=== PATIENT | female | born 1975 | race Caucasian/White ===

== ENCOUNTER → 2016-09-26 | Outpatient (CLI) | payer BC ==
[~2016-09-26] MED LIST: ACET325T14 PO; CALC-55 PO; CALC200T3 PO; CEFA1VIA2 IV; CHOL2000 PO; DOCU-30 PO; ERTA1VIA IV; ESTR1PAT40 TP; HYDR-3240 PO; HYDR-3307 PO; LORA0.5T PO; METR500T PO; ONDA4TAB10 PO; OXYC-229 PO; OXYC-302 PO; OXYC5TAB3 PO; PANT40TA3 PO; PROC5TAB40 PO; SCOP1PAT TD; SENN-1 PO; SENN1TAB7 PO; bi-est SUBMUC
== END | disposition home or self-care (01) ==
LOC: RAD 12:37
PROVIDERS: ATTEND Registered Nurse Registered Nurse First Assistant
DX: M41.85 Other forms of scoliosis, thoracolumbar region (principal); M43.8X9 Other specified deforming dorsopathies, site unspecified
CPT/HCPCS: 72082

== ENCOUNTER → 2016-12-08 | Outpatient (CLI) | payer BC ==
[~2016-12-08] MED LIST changes: +DOCU-131 PO; -DOCU-30 PO; -OXYC-229 PO; +OXYC-307 PO
== END | disposition home or self-care (01) ==
LOC: ROC 10:11
PROVIDERS: ATTEND Radiology Radiation Oncology
DX: C53.0 Malignant neoplasm of endocervix (principal)
CPT/HCPCS: 99212; G0463

== ENCOUNTER → 2016-12-29 | Outpatient (CLI) | payer BC ==
[~2016-12-29] MED LIST changes: +OMNIPAQUE 350 MG/ML, 100ML BOTTLE ONE
== END | disposition home or self-care (01) ==
LOC: CFH 09:35
PROVIDERS: ATTEND Radiology Radiation Oncology
DX: C53.0 Malignant neoplasm of endocervix (principal); K92.89 Other specified diseases of the digestive system; M43.17 Spondylolisthesis, lumbosacral region
CPT/HCPCS: 71260; 74177; Q9967

== ENCOUNTER → 2017-06-15 | Outpatient (CLI) | payer BC ==
[~2017-06-15] MED LIST changes: -OMNIPAQUE 350 MG/ML, 100ML BOTTLE ONE; -SCOP1PAT TD; +SCOP1PAT11 TD
== END ==
LOC: ROC 13:23
PROVIDERS: ATTEND Radiology Radiation Oncology
DX: Z08 Encounter for follow-up examination after completed treatment for malignant neoplasm (principal); C53.0 Malignant neoplasm of endocervix
CPT/HCPCS: 99212; G0463

== ENCOUNTER → 2017-10-18 | Outpatient (CLI) | payer BC ==
[~2017-10-18] MED LIST changes: +OMNIPAQUE 350 MG/ML, 100ML BOTTLE ONE; -SENN-1 PO; +SENN-92 PO
== END | disposition home or self-care (01) ==
LOC: CFH 11:15
PROVIDERS: ATTEND Internal Medicine Hematology & Oncology
DX: Z12.31 Encounter for screening mammogram for malignant neoplasm of breast (principal); C7A.1 Malignant poorly differentiated neuroendocrine tumors; C53.9 Malignant neoplasm of cervix uteri, unspecified; D70.1 Agranulocytosis secondary to cancer chemotherapy; C56.9 Malignant neoplasm of unspecified ovary; R16.1 Splenomegaly, not elsewhere classified
CPT/HCPCS: 71260; 74177; 77063; 77067; Q9967

== ENCOUNTER 2017-10-24 15:54 | Inpatient (IN) | payer BC ==
[~2017-10-24] VITALS: Ht 167.6 cm; Wt 75.8 kg
[~2017-10-24 15:54] MED LIST changes: -OMNIPAQUE 350 MG/ML, 100ML BOTTLE ONE
[2017-10-24 16:27] LABS: BASOPHILS # (AUTO) 0.02 x10^3/uL (0-0.1); BASOPHILS % (AUTO) 0 % (0-1); EOSINOPHILS # (AUTO) 0.29 x10^3/uL (0-0.4); EOSINOPHILS % (AUTO) 5 % (1-7); LYMPHOCYTES # (AUTO) 0.53 x10^3/uL (1-3.4); LYMPHOCYTES % (AUTO) 9 % (22-44); MD NO; MEAN CORPUSCULAR HEMOGLOBIN 28.2 pg (27.0-34.8); MEAN CORPUSCULAR HGB CONC 33.6 g/dL (32.4-35.8); MEAN CORPUSCULAR VOLUME 83.9 fL (80-100); MONOCYTES # (AUTO) 0.41 x10^3/uL (0.2-0.8); MONOCYTES % (AUTO) 7 % (2-9); NEUTROPHILS # (AUTO) 4.49 x10^3/uL (1.8-6.8); NEUTROPHILS % (AUTO) 78 % (42-75); PLATELET COUNT 282 x10^3/uL (130-400); RED BLOOD COUNT 4.22 x10^6/uL (3.82-5.3); RED CELL DISTRIBUTION WIDTH 12.9 % (9.6-15.2)
[2017-10-24] MEDS ORDERED: SODIUM CHLORIDE FLUSH 10ML SYR IVF ONE ×2 (16:30→21:30)
[2017-10-24 16:34] LABS: ALBUMIN 3.3 g/dL (3.4-5.0); ANION GAP 7 mmol/L (5-15); CHLORIDE 101 mmol/L (98-107); CREATININE 1.11 mg/dL (0.55-1.02)
[2017-10-24 19:54] LABS: MICROSCOPIC NOT IND
[2017-10-24 20:05] LABS: CULTURE INDICATED? NO
[2017-10-24] MEDS ORDERED: OMNIPAQUE 350 MG/ML, 100ML BOTTLE ONE (21:21)
[2017-10-24] MEDS ORDERED: SODIUM CHLORIDE 0.9% 1,000ML IVBOLUS ONE (21:30)
[2017-10-24] MEDS ORDERED: TESTOSTERONE CREAM TD (21:47)
[2017-10-24] MEDS ORDERED: DIPH25CA61 PO (21:47)
[2017-10-24] MEDS ORDERED: CYCL-259 PO (21:47)
[2017-10-24] MEDS ORDERED: OXYC-307 PO (21:47)
[2017-10-24 23:21] VITALS: BP 146/66
[2017-10-24] MEDS ORDERED: ONDANSETRON 2MG/ML, 2ML IVPush PRN (23:30)
[2017-10-25] MEDS: NS + 20MEQ KCL 1,000 ML IV SCH ×3 (00:17→21:27)
[2017-10-25] MEDS: morphine SULFATE 10 MG/ML, 1ML IVPush PRN ×10 (00:17→23:50)
[2017-10-25] MEDS ORDERED: BENZOCAINE AEROSOL SPRAY 20%, 60ML TP PRN (01:30)
[2017-10-25 01:52] VITALS: BP 138/62
[2017-10-25 04:57] LABS: BASOPHILS # (AUTO) 0.02 x10^3/uL (0-0.1); BASOPHILS % (AUTO) 1 % (0-1); EOSINOPHILS # (AUTO) 0.37 x10^3/uL (0-0.4); EOSINOPHILS % (AUTO) 10 % (1-7); LYMPHOCYTES # (AUTO) 0.81 x10^3/uL (1-3.4); LYMPHOCYTES % (AUTO) 22 % (22-44); MD NO; MEAN CORPUSCULAR HEMOGLOBIN 28.3 pg (27.0-34.8); MEAN CORPUSCULAR HGB CONC 33.3 g/dL (32.4-35.8); MEAN CORPUSCULAR VOLUME 85.1 fL (80-100); MEAN PLATELET VOLUME 7.8 fL (7.4-10.4); MONOCYTES # (AUTO) 0.42 x10^3/uL (0.2-0.8); MONOCYTES % (AUTO) 11 % (2-9); NEUTROPHILS # (AUTO) 2.15 x10^3/uL (1.8-6.8); NEUTROPHILS % (AUTO) 57 % (42-75); PLATELET COUNT 240 x10^3/uL (130-400); RED BLOOD COUNT 3.58 x10^6/uL (3.82-5.3); RED CELL DISTRIBUTION WIDTH 13.7 % (9.6-15.2)
[2017-10-25 05:00] LABS: CHLORIDE 107 mmol/L (98-107)
[2017-10-25 05:04] LABS: ANION GAP 9 mmol/L (5-15); CALCIUM 8.1 mg/dL (8.5-10.1); CREATININE 0.88 mg/dL (0.55-1.02)
[2017-10-25 07:08] VITALS: BP 144/92
[2017-10-25 12:27] VITALS: BP 119/79
[2017-10-25 21:39] VITALS: BP 144/91
[2017-10-26 00:48] VITALS: BP 139/85
[2017-10-26 04:46] LABS: BASOPHILS # (AUTO) 0.01 x10^3/uL (0-0.1); BASOPHILS % (AUTO) 0 % (0-1); EOSINOPHILS # (AUTO) 0.24 x10^3/uL (0-0.4); EOSINOPHILS % (AUTO) 8 % (1-7); LYMPHOCYTES # (AUTO) 0.57 x10^3/uL (1-3.4); LYMPHOCYTES % (AUTO) 19 % (22-44); MD NO; MEAN CORPUSCULAR HEMOGLOBIN 27.9 pg (27.0-34.8); MEAN CORPUSCULAR HGB CONC 33.2 g/dL (32.4-35.8); MEAN PLATELET VOLUME 7.6 fL (7.4-10.4); MONOCYTES # (AUTO) 0.39 x10^3/uL (0.2-0.8); MONOCYTES % (AUTO) 13 % (2-9); NEUTROPHILS # (AUTO) 1.75 x10^3/uL (1.8-6.8); NEUTROPHILS % (AUTO) 59 % (42-75); PLATELET COUNT 248 x10^3/uL (130-400); RED BLOOD COUNT 3.83 x10^6/uL (3.82-5.3); RED CELL DISTRIBUTION WIDTH 13.2 % (9.6-15.2)
[2017-10-26 04:55] LABS: CHLORIDE 107 mmol/L (98-107)
[2017-10-26 05:10] LABS: ALANINE AMINOTRANSFERASE 12 U/L (12-78); ALBUMIN 2.6 g/dL (3.4-5.0); ALKALINE PHOSPHATASE 54 U/L (45-117); ANION GAP 9 mmol/L (5-15); BILIRUBIN,TOTAL 0.5 mg/dL (0.2-1.0); CALCIUM 8.2 mg/dL (8.5-10.1); CREATININE 0.77 mg/dL (0.55-1.02); TOTAL PROTEIN 6.3 g/dL (6.4-8.2)
[2017-10-26] MEDS: morphine SULFATE 10 MG/ML, 1ML IVPush PRN ×4 (05:36→19:40)
[2017-10-26 07:50] VITALS: BP 136/94
[2017-10-26] MEDS: NS + 20MEQ KCL 1,000 ML IV SCH ×2 (09:37→19:41)
[2017-10-26 14:40] VITALS: BP 158/95
[2017-10-26 19:28] VITALS: BP 139/93
[2017-10-27] MEDS: morphine SULFATE 10 MG/ML, 1ML IVPush PRN ×4 (01:39→20:36)
[2017-10-27 01:40] VITALS: BP 130/90
[2017-10-27 04:50] LABS: BASOPHILS % (AUTO) 0 % (0-1); EOSINOPHILS # (AUTO) 0.17 x10^3/uL (0-0.4); EOSINOPHILS % (AUTO) 4 % (1-7); LYMPHOCYTES # (AUTO) 0.64 x10^3/uL (1-3.4); LYMPHOCYTES % (AUTO) 15 % (22-44); MD NO; MEAN CORPUSCULAR HEMOGLOBIN 28.3 pg (27.0-34.8); MEAN CORPUSCULAR HGB CONC 33.4 g/dL (32.4-35.8); MEAN CORPUSCULAR VOLUME 84.8 fL (80-100); MEAN PLATELET VOLUME 7.7 fL (7.4-10.4); MONOCYTES # (AUTO) 0.58 x10^3/uL (0.2-0.8); MONOCYTES % (AUTO) 14 % (2-9); NEUTROPHILS % (AUTO) 68 % (42-75); PLATELET COUNT 269 x10^3/uL (130-400); RED BLOOD COUNT 4.03 x10^6/uL (3.82-5.3); RED CELL DISTRIBUTION WIDTH 13.2 % (9.6-15.2)
[2017-10-27 05:02] LABS: ALBUMIN 2.9 g/dL (3.4-5.0); ANION GAP 7 mmol/L (5-15); CALCIUM 8.3 mg/dL (8.5-10.1); CHLORIDE 109 mmol/L (98-107)
[2017-10-27] MEDS: NS + 20MEQ KCL 1,000 ML IV SCH ×2 (06:18→17:35)
[2017-10-27 07:51] VITALS: BP 145/81
[2017-10-27 14:00] VITALS: BP 129/85
[2017-10-27 20:37] VITALS: BP 146/93
[2017-10-28 03:16] VITALS: BP 114/75
[2017-10-28] MEDS: NS + 20MEQ KCL 1,000 ML IV SCH ×2 (03:38→15:21)
[2017-10-28] MEDS: morphine SULFATE 10 MG/ML, 1ML IVPush PRN ×4 (03:38→19:57)
[2017-10-28 05:08] LABS: ALBUMIN 2.7 g/dL (3.4-5.0); ANION GAP 7 mmol/L (5-15); CALCIUM 8.1 mg/dL (8.5-10.1); CHLORIDE 109 mmol/L (98-107)
[2017-10-28 05:10] LABS: CREATININE 0.88 mg/dL (0.55-1.02)
[2017-10-28 05:12] LABS: BASOPHILS # (AUTO) 0.01 x10^3/uL (0-0.1); BASOPHILS % (AUTO) 0 % (0-1); EOSINOPHILS # (AUTO) 0.23 x10^3/uL (0-0.4); EOSINOPHILS % (AUTO) 8 % (1-7); LYMPHOCYTES # (AUTO) 0.83 x10^3/uL (1-3.4); LYMPHOCYTES % (AUTO) 28 % (22-44); MD NO; MEAN CORPUSCULAR HEMOGLOBIN 28.5 pg (27.0-34.8); MEAN CORPUSCULAR HGB CONC 33.9 g/dL (32.4-35.8); MEAN CORPUSCULAR VOLUME 84.1 fL (80-100); MEAN PLATELET VOLUME 7.8 fL (7.4-10.4); MONOCYTES # (AUTO) 0.47 x10^3/uL (0.2-0.8); MONOCYTES % (AUTO) 16 % (2-9); NEUTROPHILS # (AUTO) 1.42 x10^3/uL (1.8-6.8); NEUTROPHILS % (AUTO) 48 % (42-75); PLATELET COUNT 269 x10^3/uL (130-400); RED BLOOD COUNT 3.77 x10^6/uL (3.82-5.3); RED CELL DISTRIBUTION WIDTH 13.5 % (9.6-15.2)
[2017-10-28 08:56] VITALS: BP 127/85
[2017-10-28 14:17] VITALS: BP 150/95
[2017-10-28 19:42] VITALS: BP 138/94
[2017-10-29 00:25] VITALS: BP 146/84
[2017-10-29] MEDS: morphine SULFATE 10 MG/ML, 1ML IVPush PRN ×6 (00:29→23:44)
[2017-10-29] MEDS: NS + 20MEQ KCL 1,000 ML IV SCH ×2 (01:07→11:50)
[2017-10-29 07:33] VITALS: BP 136/95
[2017-10-29 12:25] VITALS: BP 136/88
[2017-10-29] MEDS ORDERED: GASTROGRAFIN 120 ML SOLN PO ONE (18:00)
[2017-10-29 21:15] VITALS: BP 155/88
[2017-10-30 01:58] VITALS: BP 121/77
[2017-10-30] MEDS: morphine SULFATE 10 MG/ML, 1ML IVPush PRN (05:56)
[2017-10-30 06:59] VITALS: BP 130/84
[2017-10-30] MEDS ORDERED: KETOROLAC 30 MG/1 ML IVPush PRN (08:00)
[2017-10-30] MEDS ORDERED: ACETAMINOPHEN 325 MG TABLET PO PRN (08:00)
== END 2017-10-30 13:00 | disposition home or self-care (01) | DRG 394 ==
LOC: ED 21:54 → EDIP 22:40 → 3NW 22:53
PROVIDERS: ADMIT Family Medicine; ATTEND Family Medicine
DX: K52.0 Gastroenteritis and colitis due to radiation (principal); K56.51 Intestinal adhesions [bands], with partial obstruction; D64.9 Anemia, unspecified; E86.0 Dehydration; E88.09 Other disorders of plasma-protein metabolism, not elsewhere classified; Y84.2 Radiological procedure and radiotherapy as the cause of abnormal reaction of the patient, or of later complication, without mention of misadventure at the time of the procedure; Z82.49 Family history of ischemic heart disease and other diseases of the circulatory system; Z85.41 Personal history of malignant neoplasm of cervix uteri; Z86.19 Personal history of other infectious and parasitic diseases; Z90.710 Acquired absence of both cervix and uterus; Z92.21 Personal history of antineoplastic chemotherapy; Z92.3 Personal history of irradiation; Y92.89 Other specified places as the place of occurrence of the external cause
CPT/HCPCS: 36415; 74018; 74022; 74177; 74250; 80048; 80053; 81003; 82040; 82962; 83605; 83735; 85025; 96361; 96374; J1885; J3480; Q9963; Q9967; J2270; J7030

== ENCOUNTER → 2017-12-07 | Outpatient (CLI) | payer BC ==
[~2017-12-07] MED LIST changes: +CYCL-259 PO; +DIPH25CA61 PO; -SENN1TAB7 PO; +SENN1TAB8 PO; +TESTOSTERONE CREAM TD
== END | disposition home or self-care (01) ==
LOC: ROC 08:47
PROVIDERS: ATTEND Radiology Radiation Oncology
DX: C53.0 Malignant neoplasm of endocervix (principal); Z88.1 Allergy status to other antibiotic agents
CPT/HCPCS: 99212; G0463